=== PATIENT | female | born 1945 | race Caucasian/White ===

== ENCOUNTER 2018-06-07 08:33 | Inpatient (IN) | payer MEDICARE ==
[2018-06-02 15:50] LABS: BASOPHILS % (AUTO) 0.7 % (0-1); EOSINOPHILS # (AUTO) 0.1 X10'3 (0-0.9); EOSINOPHILS % (AUTO) 2.2 % (0-6); LYMPHOCYTES # (AUTO) 1.8 X10'3 (1.1-4.8); LYMPHOCYTES % (AUTO) 31.2 % (21-51); MEAN CORPUSCULAR HEMOGLOBIN 30.4 PG (27.0-31.0); MEAN CORPUSCULAR HGB CONC 33.7 % (33.0-36.5); MEAN PLATELET VOLUME 7.6 FL (7.4-10.4); MONOCYTES # (AUTO) 0.4 X10'3 (0-0.9); MONOCYTES % (AUTO) 6.9 % (2-12); NEUTROPHILS # (AUTO) 3.4 X10'3 (1.8-7.7); PRE OP HEMATOCRIT 42.8 % (35.0-45.0); PRE OP HEMOGLOBIN 14.4 g/dL (12.0-16.0); PRE OP PLATELET COUNT 253 X10'3 (140-440); RED BLOOD COUNT 4.76 X10'6 (4.20-5.60); RED CELL DISTRIBUTION WIDTH 13.8 % (11.5-14.5)
[2018-06-02 16:00] LABS: PRE OP PROTIME 10.2 SECONDS (9.0-12.0)
[2018-06-02 16:07] LABS: ALBUMIN 3.8 G/DL (3.4-5.0); ALBUMIN/GLOBULIN RATIO 0.9 (1.1-1.5); ALKALINE PHOSPHATASE 78 IU/L (46-116); BLOOD UREA NITROGEN 19 MG/DL (7-18); BUN/CREATININE RATIO 16.2 (6.6-38.0); CALCIUM 9.8 MG/DL (8.5-10.1); CHLORIDE 104 MMOL/L (99-107); CREATININE 1.17 MG/DL (0.40-0.90); PRE OP ALT 41 U/L (30-65); PRE OP ANION GAP 8 (8-16); PRE OP AST 37 U/L (10-37); PRE OP BILIRUB, TOTAL 0.6 MG/DL (0.0-1.0); PRE OP GLUCOSE 83 MG/DL (70-104); PRE OP POTASSIUM 4.4 MMOL/L (3.4-5.1); PRE OP SODIUM 140 MMOL/L (135-145); TOTAL CARBON DIOXIDE 28.4 MMOL/L (24-32); eGFR 45 ML/MIN
[~2018-06-07] VITALS: Ht 170.2 cm; Wt 86.2 kg
[2018-06-07] VITALS (21 sets, daily range): BP systolic 90–149; BP diastolic 50–85
[~2018-06-07 08:33] MED LIST: ASCO500C15 PO; ASPI81TA52 PO; ATOR40TA PO; CALC-1051 PO; CHOL100046 PO; CITA20TA19 PO; GABA-532 PO; MULT-1085 PO; PANT-47 PO; PARO40TA4 PO; VERA40TA5 PO; VERA80TA2 PO; VITA400C21 PO; cefazolin/dext.iso 2gm/100 ML IV ONE; famotidine 20mg tablet PO ONE; ringers solution, lacted 1,000 ML IV SCH; tetracaine 1% (10mg/ml) pres. free inj. ONE; vancomycin inj 1,500 MG in normal saline 300ml IV soln IV ONE
[2018-06-07] MEDS ORDERED: ceFAZolin 1000mg inj ONE (08:35)
[2018-06-07] MEDS ORDERED: tranexamic acid inj. 1,000 MG in normal saline 100ml IV soln 90 ML IV ONE (09:45)
[2018-06-07] MEDS ORDERED: tranexamic acid inj. 860 MG in normal saline 100ml IV soln 91.4 ML IV ONE ×2 (09:45→11:00)
[2018-06-07] MEDS ORDERED: MIDAZolam 1mg/ml 10ml vial ONE (09:55)
[2018-06-07] MEDS ORDERED: diphenhydrAMINE 50 mg/ml inj ONE (10:16)
[2018-06-07] MEDS ORDERED: ringers solution, lacted 1,000 ML IV SCH (10:42)
[2018-06-07] MEDS ORDERED: morphine 4 MG/ML inj SYRINge IV PRN ×2 (10:45)
[2018-06-07] MEDS ORDERED: diphenhydrAMINE 50 mg/ml inj IV PRN (10:45)
[2018-06-07] MEDS ORDERED: fentaNYL/PF 50MCG/1 ML 2ML syringe IV PRN ×2 (10:45)
[2018-06-07] MEDS ORDERED: hydrALAZINE 20mg/ml inj. IV PRN (10:45)
[2018-06-07] MEDS ORDERED: ondansetron/PF 4mg/2ml inj IV PRN ×3 (10:45→12:25)
[2018-06-07] MEDS ORDERED: atropine 0.4 mg/ml 20ml vial ONE (11:19)
[2018-06-07] MEDS ORDERED: bisacodyl 10mg suppository rectal RC PRN (12:25)
[2018-06-07] MEDS ORDERED: diphenhydrAMINE 25mg capsule PO PRN ×2 (12:25)
[2018-06-07] MEDS ORDERED: HYDROmorphone inj. 0.5 MG/0.5 ML DISP.SYRIN IV PRN (12:25)
[2018-06-07] MEDS ORDERED: magnesium hydroxide 30ml (MOM) UD suspension PO PRN (12:25)
[2018-06-07] MEDS ORDERED: ketorolac tromethamine 15mg/ml inj. IV SCH (13:00)
[2018-06-07] MEDS ORDERED: acetaminophen 1,000mg/100ml IV 100 ML IV SCH (14:00)
[2018-06-07] MEDS ORDERED: tranexamic acid inj. 860 MG in normal saline 100ml IV soln 100 ML IV ONE (15:30)
[2018-06-07] MEDS: ceFAZolin 1GM/D5W- ADD-VANTAGE 50 ML IV SCH ×2 (17:24→23:53)
[2018-06-07] MEDS: aspirin 81mg tab.chew PO SCH (18:35)
[2018-06-07] MEDS: potassium Cl 20mEq in NS 1,000 ML IV SCH ×2 (19:13→22:23)
[2018-06-07] MEDS: ketorolac tromethamine 15mg/ml inj. IV SCH (19:13)
[2018-06-07] MEDS ORDERED: vancomycin/NS 1 GM ADD-VANTAGE 250 ML IV SCH (20:00)
[2018-06-07] MEDS: sennosides 8.6mg tablet PO SCH (20:30)
[2018-06-07] MEDS: gabapentin 300mg capsule PO SCH (20:30)
[2018-06-07] MEDS: acetaminophen 1,000mg/100ml IV 100 ML IV SCH (22:19)
[2018-06-08] VITALS (7 sets, daily range): BP systolic 102–152; BP diastolic 43–70
[2018-06-08] MEDS: ketorolac tromethamine 15mg/ml inj. IV SCH ×4 (01:09→19:10)
[2018-06-08] MEDS: acetaminophen 1,000mg/100ml IV 100 ML IV SCH ×4 (03:52→21:49)
[2018-06-08 06:46] LABS: BASOPHILS % (AUTO) 0.4 % (0-1); EOSINOPHILS # (AUTO) 0.1 X10'3 (0-0.9); EOSINOPHILS % (AUTO) 2.4 % (0-6); HEMATOCRIT 32.3 % (35.0-45.0); HEMOGLOBIN 10.8 g/dl (12.0-16.0); LYMPHOCYTES # (AUTO) 1.4 X10'3 (1.1-4.8); LYMPHOCYTES % (AUTO) 24.8 % (21-51); MEAN CORPUSCULAR HEMOGLOBIN 30.4 PG (27.0-31.0); MEAN CORPUSCULAR HGB CONC 33.3 % (33.0-36.5); MEAN CORPUSCULAR VOLUME 91.4 FL (78-98); MEAN PLATELET VOLUME 8.2 FL (7.4-10.4); MONOCYTES # (AUTO) 0.5 X10'3 (0-0.9); MONOCYTES % (AUTO) 9.2 % (2-12); NEUTROPHILS # (AUTO) 3.6 X10'3 (1.8-7.7); NEUTROPHILS % (AUTO) 63.2 % (42-75); PLATELET COUNT 177 X10'3 (140-440); RED BLOOD COUNT 3.54 X10'6 (4.20-5.60); RED CELL DISTRIBUTION WIDTH 13.7 % (11.5-14.5); WHITE BLOOD COUNT 5.6 X10'3 (4.5-11.0)
[2018-06-08 07:16] LABS: ALANINE AMINOTRANSFERASE 22 U/L (12-78); ALBUMIN 2.5 G/DL (3.4-5.0); ALBUMIN/GLOBULIN RATIO 0.8 (1.1-1.5); ALKALINE PHOSPHATASE 56 IU/L (46-116); ANION GAP 8 (8-16); ASPARTATE AMINO TRANSFERASE 31 U/L (10-37); BILIRUBIN,TOTAL 0.6 MG/DL (0.1-1.0); BLOOD UREA NITROGEN 21 MG/DL (7-18); BUN/CREATININE RATIO 14.4 (6.6-38.0); CALCIUM 8.5 MG/DL (8.5-10.1); CHLORIDE 103 MMOL/L (99-107); CREATININE 1.46 MG/DL (0.40-0.90); GLUCOSE 114 MG/DL (70-104); POTASSIUM 4.3 MMOL/L (3.5-5.1); SODIUM 137 MMOL/L (135-145); TOTAL CARBON DIOXIDE 26.1 MMOL/L (24-32); TOTAL PROTEIN 5.6 G/DL (6.4-8.2); eGFR 35 ML/MIN
[2018-06-08] MEDS: aspirin 81mg tab.chew PO SCH ×2 (07:25→18:02)
[2018-06-08] MEDS: PARoxetine 20mg tablet PO SCH (07:25)
[2018-06-08] MEDS: pantoprazole 40mg Tablet.DR PO SCH (07:25)
[2018-06-08] MEDS: citalopram 20mg tablet PO SCH (07:25)
[2018-06-08] MEDS: potassium Cl 20mEq in NS 1,000 ML IV SCH ×2 (09:41→18:24)
[2018-06-08] MEDS: sennosides 8.6mg tablet PO SCH (20:22)
[2018-06-08] MEDS: gabapentin 300mg capsule PO SCH (20:22)
[2018-06-09] MEDS: ketorolac tromethamine 15mg/ml inj. IV SCH ×4 (01:01→19:31)
[2018-06-09 05:52] LABS: BASOPHILS % (AUTO) 0.3 % (0-1); EOSINOPHILS # (AUTO) 0.1 X10'3 (0-0.9); EOSINOPHILS % (AUTO) 1.1 % (0-6); HEMATOCRIT 34.9 % (35.0-45.0); HEMOGLOBIN 11.8 g/dl (12.0-16.0); MEAN CORPUSCULAR HEMOGLOBIN 30.3 PG (27.0-31.0); MEAN CORPUSCULAR HGB CONC 33.6 % (33.0-36.5); MEAN CORPUSCULAR VOLUME 90.2 FL (78-98); MEAN PLATELET VOLUME 7.9 FL (7.4-10.4); MONOCYTES # (AUTO) 0.6 X10'3 (0-0.9); MONOCYTES % (AUTO) 9.1 % (2-12); NEUTROPHILS # (AUTO) 5.2 X10'3 (1.8-7.7); NEUTROPHILS % (AUTO) 75.5 % (42-75); PLATELET COUNT 180 X10'3 (140-440); RED BLOOD COUNT 3.87 X10'6 (4.20-5.60); RED CELL DISTRIBUTION WIDTH 13.9 % (11.5-14.5); WHITE BLOOD COUNT 6.9 X10'3 (4.5-11.0)
[2018-06-09 06:00] VITALS: BP 144/70
[2018-06-09 06:09] LABS: ALANINE AMINOTRANSFERASE 20 U/L (12-78); ALBUMIN 2.6 G/DL (3.4-5.0); ALBUMIN/GLOBULIN RATIO 0.7 (1.1-1.5); ALKALINE PHOSPHATASE 57 IU/L (46-116); ANION GAP 10 (8-16); ASPARTATE AMINO TRANSFERASE 36 U/L (10-37); BILIRUBIN,TOTAL 0.7 MG/DL (0.1-1.0); BLOOD UREA NITROGEN 13 MG/DL (7-18); BUN/CREATININE RATIO 12.5 (6.6-38.0); CALCIUM 9.4 MG/DL (8.5-10.1); CHLORIDE 108 MMOL/L (99-107); CREATININE 1.04 MG/DL (0.40-0.90); GLUCOSE 120 MG/DL (70-104); POTASSIUM 3.9 MMOL/L (3.5-5.1); SODIUM 143 MMOL/L (135-145); TOTAL PROTEIN 6.4 G/DL (6.4-8.2); eGFR 52 ML/MIN
[2018-06-09 07:20] VITALS: BP 147/72
[2018-06-09] MEDS: aspirin 81mg tab.chew PO SCH ×2 (07:21→17:47)
[2018-06-09] MEDS: pantoprazole 40mg Tablet.DR PO SCH (07:22)
[2018-06-09] MEDS: citalopram 20mg tablet PO SCH (07:24)
[2018-06-09] MEDS: PARoxetine 20mg tablet PO SCH (07:25)
[2018-06-09 10:15] VITALS: BP 94/52
[2018-06-09] MEDS: acetaminophen 325mg tablet PO PRN ×2 (11:47→17:50)
[2018-06-09 18:00] VITALS: BP 102/57
[2018-06-09] MEDS: gabapentin 300mg capsule PO SCH (20:46)
[2018-06-09] MEDS: sennosides 8.6mg tablet PO SCH (20:47)
[2018-06-09 22:00] VITALS: BP 116/57
[2018-06-10] MEDS: ketorolac tromethamine 15mg/ml inj. IV SCH ×2 (02:03→08:19)
[2018-06-10 05:58] LABS: ALANINE AMINOTRANSFERASE 15 U/L (12-78); ALBUMIN 2.3 G/DL (3.4-5.0); ALBUMIN/GLOBULIN RATIO 0.6 (1.1-1.5); ALKALINE PHOSPHATASE 52 IU/L (46-116); ANION GAP 8 (8-16); ASPARTATE AMINO TRANSFERASE 30 U/L (10-37); BILIRUBIN,TOTAL 0.6 MG/DL (0.1-1.0); BLOOD UREA NITROGEN 12 MG/DL (7-18); BUN/CREATININE RATIO 13.3 (6.6-38.0); CALCIUM 8.9 MG/DL (8.5-10.1); CHLORIDE 108 MMOL/L (99-107); GLUCOSE 117 MG/DL (70-104); POTASSIUM 3.7 MMOL/L (3.5-5.1); SODIUM 142 MMOL/L (135-145); TOTAL CARBON DIOXIDE 26.3 MMOL/L (24-32); eGFR 61 ML/MIN
[2018-06-10 06:00] VITALS: BP 150/57
[2018-06-10] MEDS ORDERED: ASPI-1265 PO (06:07)
[2018-06-10 06:33] LABS: HEMATOCRIT 31.2 % (35.0-45.0); HEMOGLOBIN 10.9 g/dl (12.0-16.0); LYMPHOCYTES % (AUTO) 19.3 % (21-51); MEAN CORPUSCULAR HEMOGLOBIN 31.6 PG (27.0-31.0); MEAN CORPUSCULAR VOLUME 90.4 FL (78-98); MEAN PLATELET VOLUME 8.6 FL (7.4-10.4); NEUTROPHILS % (AUTO) 70.5 % (42-75); PLATELET COUNT 164 X10'3 (140-440); RED BLOOD COUNT 3.45 X10'6 (4.20-5.60); RED CELL DISTRIBUTION WIDTH 12.9 % (11.5-14.5); WHITE BLOOD COUNT 6.9 X10'3 (4.5-11.0)
[2018-06-10 06:34] LABS: BASOPHILS % (AUTO) 0.5 % (0-1); EOSINOPHILS # (AUTO) 0.2 X10'3 (0-0.9); EOSINOPHILS % (AUTO) 2.3 % (0-6); LYMPHOCYTES # (AUTO) 1.3 X10'3 (1.1-4.8); MONOCYTES # (AUTO) 0.5 X10'3 (0-0.9); MONOCYTES % (AUTO) 7.4 % (2-12); NEUTROPHILS # (AUTO) 4.9 X10'3 (1.8-7.7)
[2018-06-10] MEDS: aspirin 81mg tab.chew PO SCH (08:09)
[2018-06-10] MEDS: citalopram 20mg tablet PO SCH (08:09)
[2018-06-10] MEDS: pantoprazole 40mg Tablet.DR PO SCH (08:09)
[2018-06-10] MEDS: PARoxetine 20mg tablet PO SCH (08:09)
[2018-06-10] MEDS: acetaminophen 325mg tablet PO PRN ×2 (08:11)
[2018-06-10 10:00] VITALS: BP 126/57
== END 2018-06-10 12:44 | disposition home health service (06) | DRG 470 ==
LOC: PAS IN 08:33 → EDSTATUS 10:45 → ORTHO 4S 13:40
PROVIDERS: ADMIT Orthopaedic Surgery; ATTEND Orthopaedic Surgery
PROC: 0SRB06Z Replacement of Left Hip Joint with Oxidized Zirconium on Polyethylene Synthetic Substitute, Open Approach (ICD-10-PCS; principal; 2018-06-07 09:42)
DX: M16.12 Unilateral primary osteoarthritis, left hip (principal); D62 Acute posthemorrhagic anemia; K21.9 Gastro-esophageal reflux disease without esophagitis; I10 Essential (primary) hypertension; F32.9 Major depressive disorder, single episode, unspecified; G47.30 Sleep apnea, unspecified; G43.909 Migraine, unspecified, not intractable, without status migrainosus; E66.9 Obesity, unspecified; Z68.29 Body mass index [BMI] 29.0-29.9, adult; Z88.5 Allergy status to narcotic agent; Z88.8 Allergy status to other drugs, medicaments and biological substances; Z79.899 Other long term (current) drug therapy
CPT/HCPCS: 36415; 71046; 80053; 85025; 85610; 85730; 86885; 86900; 86901; 86920; 87070; 97110; 97116; 97161; 97530; A6209; A6251; A6257; A7000; C1758; C1776; J0131; J0461; J0690; J1200; J1885; J2250; J3370; J7030; J7120

== ENCOUNTER 2019-06-29 19:26 | Emergency (ER) | payer MEDICARE ==
[~2019-06-29] VITALS: Ht 170.2 cm; Wt 84.1 kg
[~2019-06-29 19:26] MED LIST changes: -ASCO500C15 PO; +ASPI-1265 PO; -ASPI81TA52 PO; -ATOR40TA PO; -CALC-1051 PO; -CHOL100046 PO; -MULT-1085 PO; -VITA400C21 PO; -cefazolin/dext.iso 2gm/100 ML IV ONE; -famotidine 20mg tablet PO ONE; -ringers solution, lacted 1,000 ML IV SCH; -tetracaine 1% (10mg/ml) pres. free inj. ONE; -vancomycin inj 1,500 MG in normal saline 300ml IV soln IV ONE
[2019-06-29] MEDS ORDERED: CITA20TA28 PO (19:50)
[2019-06-29 20:20] LABS: BASOPHILS % (AUTO) 0.8 % (0-1); EOSINOPHILS # (AUTO) 0.2 X10'3 (0-0.9); EOSINOPHILS % (AUTO) 3.9 % (0-6); HEMATOCRIT 40.1 % (35.0-45.0); HEMOGLOBIN 13.3 g/dl (12.0-16.0); LYMPHOCYTES # (AUTO) 1.9 X10'3 (1.1-4.8); LYMPHOCYTES % (AUTO) 30.6 % (21-51); MEAN CORPUSCULAR HEMOGLOBIN 29.4 PG (27.0-31.0); MEAN CORPUSCULAR HGB CONC 33.2 g/dL (33.0-36.5); MEAN CORPUSCULAR VOLUME 88.6 FL (78-98); MEAN PLATELET VOLUME 7.5 FL (7.4-10.4); MONOCYTES # (AUTO) 0.5 X10'3 (0-0.9); MONOCYTES % (AUTO) 8.4 % (2-12); NEUTROPHILS # (AUTO) 3.6 X10'3 (1.8-7.7); NEUTROPHILS % (AUTO) 56.3 % (42-75); PLATELET COUNT 222 X10'3 (140-440); RED BLOOD COUNT 4.52 X10'6 (4.20-5.60); RED CELL DISTRIBUTION WIDTH 14.9 % (11.5-14.5); WHITE BLOOD COUNT 6.3 X10'3 (4.5-11.0)
[2019-06-29 20:33] LABS: ALANINE AMINOTRANSFERASE 25 U/L (12-78); ALBUMIN 3.6 G/DL (3.4-5.0); ALBUMIN/GLOBULIN RATIO 0.8 (1.1-1.5); ALKALINE PHOSPHATASE 81 IU/L (46-116); ANION GAP 5 (8-16); ASPARTATE AMINO TRANSFERASE 26 U/L (10-37); BILIRUBIN,TOTAL 0.5 MG/DL (0.1-1.0); BLOOD UREA NITROGEN 21 MG/DL (7-18); BUN/CREATININE RATIO 18.1 (6.6-38.0); CHLORIDE 106 MMOL/L (99-107); CREATININE 1.16 MG/DL (0.40-0.90); GLUCOSE 93 MG/DL (70-104); SODIUM 140 MMOL/L (135-145); TOTAL CARBON DIOXIDE 29.3 MMOL/L (24-32); TOTAL PROTEIN 7.9 G/DL (6.4-8.2); eGFR 46 ML/MIN
[2019-06-29 21:42] LABS: D-DIMER 2.88 MG/L FEU (0-0.50)
[2019-06-29] MEDS ORDERED: iohexol 350MG/ML 100ml bottle IV ONE (21:51)
[2019-06-29] MEDS ORDERED: PRED20TA PO (22:42)
[2019-06-29] MEDS ORDERED: AMOX-419 PO (22:42)
[2019-06-29] MEDS ORDERED: ALBU6.7H9 INH (22:42)
[2019-06-29 22:50] VITALS: BP 144/71
== END 2019-06-29 22:52 | disposition home or self-care (01) ==
LOC: ER 19:26
DX: J40 Bronchitis, not specified as acute or chronic (principal); R00.1 Bradycardia, unspecified; G43.909 Migraine, unspecified, not intractable, without status migrainosus; J44.9 Chronic obstructive pulmonary disease, unspecified; Z90.89 Acquired absence of other organs; Z85.3 Personal history of malignant neoplasm of breast; Z98.890 Other specified postprocedural states; Z79.82 Long term (current) use of aspirin; Z79.899 Other long term (current) drug therapy; Z88.5 Allergy status to narcotic agent; Z88.6 Allergy status to analgesic agent
CPT/HCPCS: 36415; 71045; 71275; 80053; 83880; 84484; 85025; 85379; 93005; 99284; Q9967

== ENCOUNTER 2020-04-26 09:50 | Emergency (ER) | payer MEDICARE ==
[~2020-04-26] VITALS: Ht 170.2 cm; Wt 88.6 kg
[~2020-04-26 09:50] MED LIST changes: +ALBU6.7H9 INH; -CITA20TA19 PO; +CITA20TA28 PO; -PARO40TA4 PO; -VERA40TA5 PO; -VERA80TA2 PO; +VERA80TA7 PO
--- NOTE | 2020-04-26 10:40 | NUR ---
KISHA [id number]
[2020-04-26] MEDS ORDERED: morphine 4 MG/ML inj SYRINge IM ONE (10:45)
[2020-04-26] MEDS ORDERED: TETanus/Pertussis (Acell)/Diphther VAC/PF (Tdap-Adult) 0.5ml syringe IMVAC ONE (10:50)
[2020-04-26] MEDS ORDERED: LIDOcaine 1% W/epiNEPHrine 1:200,000 10ml vial IJ ONE (10:50)
--- NOTE | 2020-04-26 10:56 | NUR ---
Pt reports nausea w/ codeine, but states she had it in the past with no ill effect. unable to update allergy list; message indicates "not have access to allergy update:codeine."
[2020-04-26 13:30] VITALS: BP 148/82
== END 2020-04-26 13:32 | disposition home or self-care (01) ==
LOC: ER 09:52
DX: S01.81XA Laceration without foreign body of other part of head, initial encounter (principal); S09.90XA Unspecified injury of head, initial encounter; G43.909 Migraine, unspecified, not intractable, without status migrainosus; E78.00 Pure hypercholesterolemia, unspecified; J44.9 Chronic obstructive pulmonary disease, unspecified; K21.9 Gastro-esophageal reflux disease without esophagitis; F32.9 Major depressive disorder, single episode, unspecified; Z98.890 Other specified postprocedural states; Z72.89 Other problems related to lifestyle; Z88.5 Allergy status to narcotic agent; Z88.8 Allergy status to other drugs, medicaments and biological substances; Z79.82 Long term (current) use of aspirin; Z79.899 Other long term (current) drug therapy; W01.0XXA Fall on same level from slipping, tripping and stumbling without subsequent striking against object, initial encounter; Y93.89 Activity, other specified; Y92.89 Other specified places as the place of occurrence of the external cause; Y99.8 Other external cause status
CPT/HCPCS: 12013; 70450; 72125; 90471; 90715; 96372; 99285; J2270

== ENCOUNTER 2024-02-04 10:18 | Outpatient (CLI) | payer MEDICARE ==
[~2024-02-04] VITALS: Ht 170.2 cm; Wt 83.9 kg
[~2024-02-04 10:18] MED LIST changes: +ALBU6.7H14 INH; -ALBU6.7H9 INH
[2024-02-04 10:52] VITALS: PULSE 64; RESP 16; O2SAT 99
[2024-02-04] MEDS: albuterol 2.5 MG/3 ML nebule NEB ONE (11:13)
== END 2024-02-04 23:59 | disposition home or self-care (01) ==
LOC: RT 10:18
PROVIDERS: ATTEND Family Medicine
DX: R06.2 Wheezing (principal)
CPT/HCPCS: 94060; 94760

== ENCOUNTER 2024-06-24 11:12 | Outpatient (CLI) | payer MEDICARE ==
[2024-06-24 11:37] LABS: BASOPHILS # (AUTO) 0.1 X10'3 (0-0.2); BASOPHILS % (AUTO) 1.1 % (0-1); EOSINOPHILS # (AUTO) 0.2 X10'3 (0-0.9); EOSINOPHILS % (AUTO) 3.3 % (0-6); HEMATOCRIT 42.7 % (35.0-45.0); HEMOGLOBIN 14.1 g/dl (12.0-16.0); LYMPHOCYTES # (AUTO) 1.5 X10'3 (1.1-4.8); LYMPHOCYTES % (AUTO) 28.7 % (21-51); MEAN CORPUSCULAR HEMOGLOBIN 30.2 PG (27.0-31.0); MEAN CORPUSCULAR VOLUME 91.6 FL (78-98); MEAN PLATELET VOLUME 6.9 FL (7.4-10.4); MONOCYTES # (AUTO) 0.4 X10'3 (0-0.9); MONOCYTES % (AUTO) 7.1 % (2-12); NEUTROPHILS # (AUTO) 3.1 X10'3 (1.8-7.7); NEUTROPHILS % (AUTO) 59.8 % (42-75); PLATELET COUNT 254 X10'3 (140-440); RED BLOOD COUNT 4.66 X10'6 (4.20-5.60); RED CELL DISTRIBUTION WIDTH 13.3 % (11.5-14.5); WHITE BLOOD COUNT 5.2 X10'3 (4.5-11.0)
[2024-06-24 11:50] LABS: APTT 25 SECONDS (22-32); PROTHROMBIN TIME 10.5 SECONDS (9.0-12.0)
[2024-06-24 11:51] LABS: ALBUMIN 3.7 G/DL (3.4-5.0); ANION GAP 5 (8-16); BLOOD UREA NITROGEN 15 MG/DL (7-18); BUN/CREATININE RATIO 12.2 (10.0-20.0); CALCIUM 9.7 MG/DL (8.5-10.1); CHLORIDE 105 MMOL/L (99-107); CHOLESTEROL 153 MG/DL (0-200); CREATININE 1.23 MG/DL (0.40-0.90); GLUCOSE 105 MG/DL (70-104); HDL CHOLESTEROL 57 MG/DL (35-60); POTASSIUM 4.3 MMOL/L (3.5-5.1); SODIUM 140 MMOL/L (135-145); TOTAL CARBON DIOXIDE 29.9 MMOL/L (24-32); eGFR 42 ML/MIN
[2024-06-24 11:52] LABS: CHOL/HDL RATIO 2.7 (0.00-4.99); LDL CHOLESTEROL 76 MG/DL (50-100); TRIGLYCERIDES 139 MG/DL (20-135)
== END 2024-06-24 23:59 | disposition home or self-care (01) ==
LOC: RAD 11:12
PROVIDERS: ATTEND Internal Medicine Interventional Cardiology
DX: Z01.812 Encounter for preprocedural laboratory examination (principal); E78.5 Hyperlipidemia, unspecified; I10 Essential (primary) hypertension; R06.02 Shortness of breath
CPT/HCPCS: 36415; 80048; 80061; 85025; 85610; 85730

== ENCOUNTER 2024-06-28 11:38 | Day surgery (SDC) | payer MEDICARE ==
[2024-06-28] VITALS (7 sets, daily range): BP systolic 136–174; BP diastolic 54–88; PULSE 60; RESP 11–17; TEMP 99.1; O2SAT 94–99
[~2024-06-28] VITALS: Ht 170.2 cm; Wt 89.0 kg
[2024-06-28] MEDS ORDERED: LORazepam 0.5 MG tablet PO PRN (12:10)
[2024-06-28] MEDS ORDERED: PANT40TA54 PO (12:54)
[2024-06-28] MEDS ORDERED: methylfolate PO (12:54)
[2024-06-28] MEDS ORDERED: METH-798 PO (12:54)
[2024-06-28] MEDS ORDERED: CHOL10008 PO (12:54)
[2024-06-28] MEDS ORDERED: CYAN-34 PO (12:54)
[2024-06-28] MEDS ORDERED: ASCO500C17 PO (12:54)
[2024-06-28] MEDS ORDERED: MAGN250T29 PO (12:54)
[2024-06-28] MEDS ORDERED: LACT1CAP75 PO (12:54)
[2024-06-28] MEDS ORDERED: VERA120T86 PO (12:54)
[2024-06-28] MEDS ORDERED: SOLI5TAB8 PO (12:54)
[2024-06-28] MEDS ORDERED: SENN-263 PO (12:54)
[2024-06-28] MEDS ORDERED: MULT-1085 PO (12:54)
[2024-06-28] MEDS ORDERED: BENZ-111 PO (12:54)
[2024-06-28] MEDS ORDERED: FEZO45TA PO (12:54)
[2024-06-28] MEDS ORDERED: DESV50TA10 PO (12:54)
[2024-06-28] MEDS ORDERED: AZEL137S4 BOTHNARES (12:54)
[2024-06-28] MEDS ORDERED: ATOR40TA72 PO (12:54)
[2024-06-28] MEDS ORDERED: SEMA2PEN SUBCUT (12:54)
[2024-06-28] MEDS: diphenhydrAMINE 25mg capsule PO PRN (13:17)
[2024-06-28] MEDS: normal saline 1,000 ML IV SCH (13:18)
[2024-06-28] MEDS ORDERED: heparin 1,000unit/ml 10ml vial 10 ML ONE (14:38)
[2024-06-28] MEDS ORDERED: verapamil 2.5 mg/ml inj IV ONE (14:38)
[2024-06-28] MEDS ORDERED: iohexol 350MG/ML 100ml bottle IV ONE (14:38)
[2024-06-28] MEDS ORDERED: fentaNYL/PF 50MCG/1 ML 2ML syringe ONE (14:38)
[2024-06-28] MEDS ORDERED: LIDOcaine 1% (10mg/ml) 2ml vial ONE (14:38)
[2024-06-28] MEDS ORDERED: midazolam 1 mg/ML 2ml injection ONE (14:38)
[2024-06-28] MEDS ORDERED: LIDOcaine 1% 30ml preserv. free vial ONE (14:47)
== END 2024-06-28 17:20 | disposition home or self-care (01) ==
LOC: SSTAY O 11:38
PROVIDERS: ATTEND Internal Medicine Interventional Cardiology
DX: R07.89 Other chest pain (principal); I11.9 Hypertensive heart disease without heart failure; I25.2 Old myocardial infarction; E78.00 Pure hypercholesterolemia, unspecified; G47.33 Obstructive sleep apnea (adult) (pediatric); G43.909 Migraine, unspecified, not intractable, without status migrainosus; Z79.899 Other long term (current) drug therapy; Z88.5 Allergy status to narcotic agent; Z91.040 Latex allergy status; Z88.8 Allergy status to other drugs, medicaments and biological substances
CPT/HCPCS: 93005; 93458; A6258; C1725; C1760; C1894; J1644; J2001; J2250; J3010; J3490; J7030; Q0163; Q9967; Z7610; 99152; C1769